=== PATIENT | female | born 1980 | race Caucasian/White ===

== ENCOUNTER → 2023-09-30 17:36 | Outpatient (REF) | payer BC, SELFPAY | LOC: MRI 3T 17:36 | PROVIDERS: ATTENDING PHYSICIAN Specialist; FAMILY PHYSICIAN Family Medicine | DX: G35 Multiple sclerosis (principal) | CPT/HCPCS: 70553; 72156; A9575 ==

== ENCOUNTER → 2023-10-01 18:10 | Outpatient (REF) | payer BC, SELFPAY | LOC: MRI 3T 18:10 | PROVIDERS: ATTENDING PHYSICIAN Specialist; FAMILY PHYSICIAN Family Medicine | DX: G35 Multiple sclerosis (principal) | CPT/HCPCS: 72157; A9575 ==

== ENCOUNTER → 2025-01-24 13:54 | Outpatient (REF) | payer OTHER, SELFPAY | LOC: MRI 3T 13:54 | PROVIDERS: ATTENDING PHYSICIAN Specialist | DX: G35 Multiple sclerosis (principal) | CPT/HCPCS: 70553; 72156; A9575 ==

== ENCOUNTER → 2025-01-25 15:10 | Outpatient (REF) | payer OTHER, SELFPAY | LOC: MRI 3T 15:10 | PROVIDERS: ATTENDING PHYSICIAN Specialist | DX: G35 Multiple sclerosis (principal) | CPT/HCPCS: 72157; A9575 ==